=== PATIENT | male | born 1960 | race Caucasian/White ===

== ENCOUNTER 2017-07-14 12:41 | Emergency (ER) | payer OTHER, MEDICAID ==
[~2017-07-14] VITALS: Ht 177.8 cm; Wt 74.8 kg
[~2017-07-14 12:41] MED LIST: ASPIRIN325; AUGMENTIN 875875 MG PO; CHANTIX1 MG PO; HYDROCODONE-AP1 EAC6 PO; LEVAQUIN 500 M500 MG PO; LIPITOR 40 MG T40 M1; LOSARTAN POTASS50 MG; NEXIUM 40 MG CA40 M1; NORCO 5-325 TA1 EACH PO; PERCOCET 5-3251 EACH PO; PLAVIX 75 MG TA75 M1 PO; PROAIR HFA8.5 GM; PROAIR HFA8.5 GM INH; SPIRIVA; TOPROL XL25 MG PO; TRAMADOL-ACETA1 EACH
[2017-07-14] MEDS ORDERED: ASPIR 8181 MG PO (13:06)
[2017-07-14 13:49] LABS: INFLUENZA A ANTIGEN None Detected (None Detect); INFLUENZA B ANTIGEN None Detected (None Detect)
[2017-07-14] MEDS ORDERED: ZPAK PO (14:03)
[2017-07-14 14:10] VITALS: BP 129/77
== END 2017-07-14 14:11 | disposition home or self-care (01) ==
LOC: M.ERS 12:41
PROVIDERS: Nurse Practitioner Family
DX: J06.9 Acute upper respiratory infection, unspecified (principal); I25.2 Old myocardial infarction; E78.00 Pure hypercholesterolemia, unspecified; J44.9 Chronic obstructive pulmonary disease, unspecified; Z95.0 Presence of cardiac pacemaker; Z95.5 Presence of coronary angioplasty implant and graft; Z98.890 Other specified postprocedural states; Z88.8 Allergy status to other drugs, medicaments and biological substances

== ENCOUNTER 2017-07-18 12:33 | Emergency (ER) | payer OTHER, MEDICAID ==
[~2017-07-18] VITALS: Ht 177.8 cm; Wt 74.8 kg
[~2017-07-18 12:33] MED LIST changes: +ASPIR 8181 MG PO; +ZPAK PO
[2017-07-18 13:59] VITALS: BP 127/71
== END 2017-07-18 14:00 | disposition home or self-care (01) ==
LOC: M.ERS 12:33
DX: R05 Cough (principal); I25.2 Old myocardial infarction; E78.00 Pure hypercholesterolemia, unspecified; J44.9 Chronic obstructive pulmonary disease, unspecified; Z95.5 Presence of coronary angioplasty implant and graft; Z95.0 Presence of cardiac pacemaker; Z98.890 Other specified postprocedural states; Z88.8 Allergy status to other drugs, medicaments and biological substances

== ENCOUNTER 2017-11-30 10:36 | Emergency (ER) | payer OTHER, MEDICAID ==
[~2017-11-30] VITALS: Ht 177.8 cm; Wt 83.9 kg
[2017-11-30 10:39] VITALS: BP 120/72
[2017-11-30] MEDS ORDERED: COZAAR 50 MG TA50 M2 PO (10:42)
[2017-11-30] MEDS ORDERED: POLYMYXIN B/TMP10 ML OPHTHALMIC (10:49)
== END 2017-11-30 10:58 | disposition home or self-care (01) ==
LOC: M.ERS 10:36
DX: H10.89 Other conjunctivitis (principal); E78.00 Pure hypercholesterolemia, unspecified; J44.9 Chronic obstructive pulmonary disease, unspecified; Z88.8 Allergy status to other drugs, medicaments and biological substances

== ENCOUNTER → 2018-01-06 | Outpatient (CLI) | payer OTHER, MEDICAID ==
[~2018-01-06] MED LIST changes: +COZAAR 50 MG TA50 M2 PO; +POLYMYXIN B/TMP10 ML OPHTHALMIC
--- NOTE | 2018-01-06 15:56 | 2DMMODE ---
[place] [address] 2 D/M-MODE ECHOCARDIOGRAM Name: LAURA BUENROSTRO Room: [facility]#: [id number] Admission: 01/06/18 Attend Phys: Annelise De Leon, Discharge: Date of : 62 Date of Service: 01/06/18 1556 Report #: [id number] THIS REPORT FOR: //name// APPROVED REPORT Study performed: 01/06/2018 13:14:40 EXAM: Comprehensive 2D, Doppler, and color-flow Echocardiogram Patient Location: Out-Patient Status: routine BSA: 2.00 HR: 62 bpm Other Information Study Quality: Fair Indications Congestive Heart Failure CAD Cardiomyopathy 2D Dimensions LVEF(%): 28.97 (>50%) IVSd: 12.71 (7-11mm) LVOT Diam: 20.87 (18-24mm) LVDd: 56.07 mm PWd: 10.64 (7-11mm) Ascending Ao: 29.92 (22-36mm) LVDs: 48.37 (25-40mm) Aortic Root: 33.21 mm Downing's LVEF: 28.97 % Volumes Left Atrial Volume (Systole) LA ESV Index: 19.80 mL/m2 Aortic Valve AoV Peak Cesar.: 0.86 m/s AO Peak Gr.: 2.97 mmHg LVOT Max P.47 mmHg AO Mean Gr.: 1.49 mmHg LVOT Mean P.01 mmHg LVOT Max V: 0.79 m/s AO V2 VTI: 15.28 cm LVOT Mean V: 0.45 m/s ML (VTI): 2.73 cm2 LVOT V1 VTI: 12.20 [place] [address] 2 D/M-MODE ECHOCARDIOGRAM Name: LAURA BUENROSTRO Room: [facility]#: [id number] Admission: 01/06/18 Attend Phys: Annelise De Leon, Discharge: Date of : 62 Date of Service: 01/06/18 1556 Report #: [id number] E/A Ratio: 0.67 MV Decel. Time: 221.70 ms MV E Max Cesar.: 0.44 m/s MV PHT: 64.29 ms MVA (PHT): 3.42 cm2 TDI E/Lateral E': 7.33 E/Medial E': 6.29 Medial E' Cesar.: 0.07 m/s Lateral E' Cesar.: 0.06 m/s Pulmonary Valve PV Peak Cesar.: 0.84 m/s PV Peak Gr.: 2.84 mmHg Tricuspid Valve TR Peak Gr.: 17.88 mmHg RVSP: 22.88 mmHg Left Ventricle Left ventricle is mildly dilated. akinesis noted of the apex There is normal left ventricular wall thickness. Left ventricular systolic function is severely decreased. LVEF is 20-25%. Grade I - abnormal relaxation pattern. Right Ventricle The right ventricle is normal size. The right ventricular systolic function is normal. Pacemaker lead is present in the right ventricle. Atria The left atrium size is normal. Pacemaker lead is present in the right atrium. The right atrium size is normal. Aortic Valve The aortic valve is normal in structure. No aortic regurgitation is present. There is no aortic valvular stenosis. Mitral Valve The mitral valve is normal in structure. Mild mitral regurgitation. No evidence of mitral valve stenosis. Tricuspid Valve The tricuspid valve is normal in structure. Mild tricuspid regurgitation. The RVSP is __22.9 mmHg. Pulmonic Valve The pulmonary valve is normal in structure. Mild [place] [address] 2 D/M-MODE ECHOCARDIOGRAM Name: LAURA BUENROSTRO Room: [facility]#: [id number] Admission: 01/06/18 Attend Phys: Annelise De Leon, Discharge: Date of : 62 Date of Service: 01/06/18 1556 Report #: [id number] Great Vessels The aortic root is normal in size. IVC is not well visualized. Pericardium There is no pericardial effusion. <Conclusion> Left ventricle is mildly dilated. LVEF is 20-25%. Mild mitral regurgitation. akinesis noted of the apex <ELECTRONICALLY SIGNED> By: John Espinoza MD, FACC 01/06/18 1556 1556 1556 John Espinoza MD, FACC /INF
== END ==
LOC: M.CRD 12:50
DX: I08.1 Rheumatic disorders of both mitral and tricuspid valves (principal); I25.10 Atherosclerotic heart disease of native coronary artery without angina pectoris; I50.22 Chronic systolic (congestive) heart failure; I25.5 Ischemic cardiomyopathy

== ENCOUNTER 2018-06-23 11:24 | Observation (INO) | payer OTHER, MEDICAID ==
[~2018-06-23] VITALS: Ht 177.8 cm; Wt 89.8 kg
--- NOTE | ~2018-06-23 | CON ---
[address] [address] CONSULTATION Name: LAURA BUENROSTRO Room: [address] Amaury Archer#: [id number] Admission: 06/23/18 Attend Phys: Dakota Stoll MD Discharge: 06/23/18 Date of : 62 Report #: [id number] THIS REPORT FOR: //name// CC: Dakota Kidd DATE OF SERVICE: 06/23/2018 REASON FOR CONSULTATION: Dizziness, diaphoresis. HISTORY OF PRESENT ILLNESS: The patient is a 58-year-old male with an ischemic cardiomyopathy, previously followed by Dr. De Leon in our practice. He went to the Emergency Room with an episode of lightheadedness and diaphoresis. This has been ongoing for the last couple of weeks or so. He does have a defibrillator. He denies any defibrillator shocks. His device has been interrogated and it has not delivered any therapy since initial implant apparently. He does have a history of prior partial lobectomy, but has not really been short of breath. He actually feels better when he exercises. He usually walks 3-4 miles on the treadmill most days of the week and has no symptoms of dizziness, chest pressure, tightness, or diaphoresis with this. He does not have a history of diabetes. We recently had increased his Toprol dose thinking this could be related to an arrhythmia, but his symptoms really have not improved. PAST MEDICAL HISTORY: Significant for ischemic cardiomyopathy status post prior coronary artery bypass graft. He reports it has been some time since his last MPI. Non-small cell cancer of the left lung status post partial lobectomy. This apparently was a successful localized resection. He has a [employer] [place] ICD implanted by Dr. Chu in our practice, implanted in 2014 with normal function. Reviewing our outpatient defibrillator interrogations, it showed that he has had one 8 second long beat of nonsustained ventricular tachycardia in February; other than that, nothing else. HOME MEDICATIONS: Include albuterol, aspirin, atorvastatin 40 mg daily, Chantix, Plavix 75 mg daily, Cozaar 25 mg daily, metoprolol XL 25 mg p.o. b.i.d., Spiriva. SOCIAL HISTORY: He is not actively smoking. PAST SURGICAL HISTORY: As above, prior most recent surgery was his lobectomy. REVIEW OF SYSTEMS: NEUROLOGIC: Denies any history of seizures. Denies slurred speech, [place] [address] CONSULTATION Name: LAURA BUENROSTRO Room: [address]#: [id number] Admission: 06/23/18 Attend Phys: Dakota Stoll MD Discharge: 06/23/18 Date of : 62 Report #: [id number] changes or difficulty swallowing. CARDIOVASCULAR: No chest discomfort, no orthopnea, no PND, no dyspnea with exertion. GENERAL: No weight gain. No fevers or chills. SKIN: No rashes. PHYSICAL EXAMINATION: VITAL SIGNS: Blood pressure is 130/53, pulse is 55 in a sinus rhythm, respiratory rate 12, O2 sats 97%. GENERAL: This is a pleasant adult male who is alert, oriented, no apparent distress. NECK: Supple. No jugular venous distention. CARDIOVASCULAR: Regular. I cannot hear a murmur or S3. LUNGS: Clear to auscultation bilaterally. Breath sounds are reduced in the left base. NEUROLOGIC: There are no focal deficits. SKIN: There are no rashes. MUSCULOSKELETAL: There is no pretibial edema on his lower extremity examination. LABORATORY DATA: Hemoglobin is 14.4, white blood cell count 4.1, platelet count is 132,000. Sodium is 140, potassium 3.7, chloride is 106, CO2 is 25, BUN is 11, creatinine is 1.3. INR is 1.0. Carotid Doppler study reveals no hemodynamically significant carotid stenosis in accordance with NASCET criteria. Normal vertebrobasilar flow. CTA of the chest shows no evidence of pulmonary emboli, bullous emphysema changes in the upper lungs bilaterally with strand-like scarring in the lower lungs. Chest x-ray shows no evidence of congestive heart failure. IMPRESSION: 1. Dizziness and diaphoresis. This does not seem anginal. He has already had 2 cardiac troponin levels, which are normal and he is very active physically and never develops any exertional chest discomfort. While he will be evaluated with a pharmacologic stress test, I would like to adjust his blood pressure medications to possibly treat him for potential vasomotor instability. I am holding his ARB. 2. Ischemic cardiomyopathy, chronic systolic dysfunction. He does not have evidence of congestive heart failure on examination and if his symptoms do not improve with holding his ARB, I am going to restart it because he does have congestive heart failure. 3. Chronic obstructive pulmonary disease. It is also possible he may be getting transiently hypoxic as he has had a partial pneumonectomy that could be leading to some of his symptoms. 4. Status post implantable cardioverter-defibrillator. His last interrogation was unremarkable. [address] [address] CONSULTATION Name: LAURA BUENROSTRO Room: [address] Amaury Archer#: [id number] Admission: 06/23/18 Attend Phys: Dakota Stoll MD Discharge: 06/23/18 Date of : 62 Report #: [id number] 5. History of nonsustained ventricular tachycardia. This was brief and several months ago. We will continue with beta doyle therapy. Thank you for allowing me to participate in his care. By: 1543 1824Aldo Mai MD, FACC /nt
[~2018-06-23 11:24] MED LIST changes: +COZAAR 50 MG TA50 M1 PO; -COZAAR 50 MG TA50 M2 PO; -LIPITOR 40 MG T40 M1; +LIPITOR 40 MG T40 M1 PO; -SPIRIVA; +SPIRIVA INH
[2018-06-23 11:35] VITALS: BP 148/56
[2018-06-23 12:00] LABS: ABSOLUTE EOSINOPHILS 0.1 thou/uL (0.0-0.7); ABSOLUTE LYMPHOCYTES 1.2 thou/uL (0.8-5.3); ABSOLUTE MONOCYTES 0.3 thou/uL (0.0-1.2); ABSOLUTE NEUTROPHILS 2.4 thou/uL (1.6-8.1); BASOPHILS 1.1 %; EOSINOPHILS 1.7 %; HEMATOCRIT 42.6 % (42.0-52.0); HEMOGLOBIN 14.4 gm/dL (14.0-18.0); LYMPHOCYTES 29.4 %; MCH 31.6 pg (26.0-34.0); MCHC 33.8 g/dL (28.0-37.0); MCV 93.5 fL (80.0-100.0); MONOCYTES 8.3 %; MPV 9.4 fl. (7.2-11.1); NUCLEATED RBCS 0 /100WBC; PLATELET COUNT* 132 thou/uL (150-400); POLYS 59.5 %; RBC 4.55 mil/uL (4.50-6.00); RDW-CV 13.9 % (10.5-14.5); WBC 4.1 thou/uL (4.0-11.0)
[2018-06-23 12:11] LABS: ANION GAP 9 mmol/L (7-16); BUN 11 mg/dL (7-18); CHLORIDE 106 mmol/L (98-107); CO2 25 mmol/L (21-32); CREATININE 1.3 mg/dL (0.6-1.3); GLUCOSE 113 mg/dL (70-99); POTASSIUM 3.7 mmol/L (3.5-5.1); SODIUM 140 mmol/L (136-145)
[2018-06-23 12:14] LABS: APTT 23.3 Seconds (25.0-31.3); PROTIME 10.2 Seconds (9.20-11.50)
[2018-06-23 12:18] LABS: ALBUMIN 3.4 g/dL (3.4-5.0); ALKALINE PHOSPHATASE 87 U/L (46-116); SGOT 21 U/L (15-37); SGPT 44 U/L (30-65); TOTAL BILIRUBIN 0.5 mg/dL (<0.1-1.0); TROPONIN-I LEVEL <0.06 ng/mL (<0.06)
[2018-06-23 15:30] VITALS: BP 130/53; BP 137/106
--- NOTE | 2018-06-23 16:23 | EKG ---
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: Andrea TOTH : 1960 Requested By: Gustavo Rosado Order Number: [id number] MD: Aldo Mai Measurements Intervals [place] Rate: 56 P: 22 NH: 170 QRS: 65 QRSD: 123 T: 171 QT: 422 QTc: 408 Interpretive Statements Sinus rhythm LVH with secondary repolarization abnormality No previous ECG available for comparison Electronically Signed On 06-23-2018 16:23:17 ONCOLOGY CONSULTANT by Aldo Mai [email or web address] <ELECTRONICALLY SIGNED> By: Aldo Mai MD, [facility] 06/23/18 1623 1138 113 Aldo Mai MD, [facility] /EPI
--- NOTE | 2018-06-23 16:24 | EKG ---
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 : 1960 Requested By: Gustavo Rosado Order Number: [id number] MD: Aldo Mai Measurements Intervals [place] Rate: 50 P: 24 DC: 198 QRS: 49 QRSD: 119 T: 159 QT: 457 QTc: 417 Interpretive Statements Sinus rhythm Probable left atrial enlargement Nonspecific intraventricular conduction delay Abnormal T, consider ischemia, lateral leads No previous ECG available for comparison Electronically Signed On 06-23-2018 16:23:59 SCREEN PRINTING MACHINE LOADER UNLOADER by Aldo Mai [email or web address] <ELECTRONICALLY SIGNED> By: Aldo Mai MD, FACC 06/23/18 1623 1344 1344 Aldo Mai MD, [facility] /EPI
[2018-06-23 16:35] VITALS: BP 119/76
[2018-06-23 16:36] VITALS: BP 128/77
[2018-06-23 16:37] VITALS: BP 115/78
[2018-06-23 16:43] VITALS: BP 137/106
--- NOTE | 2018-06-23 17:55 | NUR ---
PATIENT DISCHARGED TO HOME. DISCHARGE PAPERS REVIEWED AND SIGNED. NO PRESCRIPTIONS. IV REMOVED. PATIENT DENIES ANY NEEDS. PATIENT TAKEN AMBULATORY TO EXIT. LEFT WITH COUSIN.
== END 2018-06-23 17:55 | disposition home or self-care (01) ==
LOC: M.ERS 11:24 → M.3W 14:21 → M.TBA-ER 14:21 → M.3W 15:40
PROVIDERS: Emergency Medicine Emergency Medical Services; ADMIT Internal Medicine
DX: R55 Syncope and collapse (principal); I25.10 Atherosclerotic heart disease of native coronary artery without angina pectoris; I50.42 Chronic combined systolic (congestive) and diastolic (congestive) heart failure; J44.9 Chronic obstructive pulmonary disease, unspecified; I25.5 Ischemic cardiomyopathy; Z85.118 Personal history of other malignant neoplasm of bronchus and lung; Z95.1 Presence of aortocoronary bypass graft; E78.00 Pure hypercholesterolemia, unspecified; Z79.899 Other long term (current) drug therapy; Z87.891 Personal history of nicotine dependence

== ENCOUNTER → 2018-07-18 | Outpatient (CLI) | payer OTHER, MEDICAID ==
--- NOTE | 2018-07-18 16:18 | CARDNUC ---
[place] [address] CARDIAC NUCLEAR IMAGING REPORT Name: LAURA BUENROSTRO Room: [facility]#: [id number] Admission: 07/18/18 Attend Phys: Adlo Mai, Discharge: Date of : 62 Date of Service: 07/18/18 1618 Report #: [id number] THIS REPORT FOR: //name// APPROVED REPORT Imaging Protocol: Rest Tc-99m/Stress Tc-99m 1 day Study performed: 07/18/2018 07:30:00 Indication: SOA, diaphoresis Patient Location: Out-Patient Stress Tech: Fernanda Mendoza Stress Nurse: Kayce Francis RN NM Tech:TANNA Bustamante Ht: 6 ft 2 in Wt: 237 lbs BSA: 2.34 m2 BMI: 30.42 Medical History Medical History: CAD, HLP, LUNG CA, COPD, ICM Medications: metoprolol, ASA, clopidigrel, atorvastatin Allergies: lisinopril Cardiac Risk Factors: Age, HLP, FCAD Previous Cardiac Procedures: CABG, PCI Meds Held (24 hrs): metoprolol Resting Data Rest SPECT myocardial perfusion imaging was performed in supine position 30 minutes following the intravenous injection of 11.3 mCi of Tc-99m Sestamibi. Time of rest injection: 744 Date: 07/18/2018 Time of rest imagin The images were gated to evaluate regional wall motion and calculate left ventricular ejection fraction. Administration Route: IV Administration Site: Right Hand Pharmacologic Stress Pharmacologic stress test was performed by injecting Regadenoson 0.4 mg IV push over 10-15 seconds immediately followed by the intravenous injection of 35.4 mCi of Tc-99m Sestamibi. Time of stress injection: 914 Time of stress imagin Administration Route: IV Administration Site: Right Hand Gated Stress SPECT was performed 40 [place] [address] CARDIAC NUCLEAR IMAGING REPORT Name: LAURA BUENROSTRO Room: [facility]#: [id number] Admission: 07/18/18 Attend Phys: Aldo Mai, Discharge: Date of : 62 Date of Service: 07/18/18 1618 Report #: [id number] injection. The images were gated to evaluate regional wall motion and calculate left ventricular ejection fraction. Prone imaging was performed. Stress Test Details Stress Test: Pharmacologic stress was paired with low level exercise. HR Max Heart Rate (APMHR): 163 bpm Resting HR: 59 bpm Target HR (85% APMHR): 138 bpm Max HR Achieved: 115 bpm % of APMHR: 70 Recovery HR: 92 bpm BP Resting BP: 131/83 mmHg Max BP: 145/100 mmHg Recovery BP: 136/83 mmHg ECG Resting ECG: Sinus Rhythm, nonspecific ST-T abnormalities Stress ECG: Sinus Rhythm, nonspecific ST-T abnormalities ST Change: None Arrhythmia: None Recovery ECG: Sinus Rhythm with early repolarization changes Recovery ST Change: None Recovery Arrhythmia: None Clinical Reason for Termination: Completed protocol Stress Symptoms: SOA/chest tightness post lexiscan that resolved in recovery period Exercise duration: 4 min 0 sec The patient tolerated Lexiscan infusion without significant symptoms. Stress ECG Conclusion The baseline 12-lead EKG shows sinus rhythm with nonspecific intraventricular conduction delay and nonspecific ST and T wave abnormalities. EKGs obtained during and post Lexiscan infusion show sinus rhythm and sinus tachycardia without significant ST or T wave changes when compared to baseline. There were no significant stress[place] [address] CARDIAC NUCLEAR IMAGING REPORT Name: LAURA BUENROSTRO Room: [facility]#: [id number] Admission: 07/18/18 Attend Phys: Aldo Mai, Discharge: Date of : 62 Date of Service: 07/18/18 1618 Report #: [id number] Study Quality Study: Good Artifact: No artifact Study Data At rest, the left ventricular ejection fraction was 20%.. Post stress, the left ventricular ejection was 30%.. TID = 1.09. Perfusion Myocardial perfusion images show a large in size severe intensity fixed defect involving the basal to apical inferior wall. There is also a moderate size moderate intensity fixed defect of the mid to distal anterior wall. No reversible defects were identified. Wall Motion On gated studies the left ventricle shows severe low blood hypokinesis. There is akinesis of the distal anterior wall and the inferior wall. Nuclear Conclusion ECG Findings: non-diagnostic Clinical Findings: negative for ischemia Nuclear Findings: negative for ischemia Exercise Capacity: not assessed Left Ventricular Function: abnormal Myocardial perfusion images show fixed defects involving the entire inferior wall and mid to distal anterior wall consistent with areas of prior infarct. There is severe left ventricular systolic dysfunction. Findings consistent with an ischemic cardiomyopathy. This is a high risk stress test based on severe left ventricular systolic dysfunction. There is no evidence of ongoing ischemic burden. <Conclusion> The baseline 12-lead EKG shows sinus rhythm with nonspecific intraventricular conduction delay and nonspecific ST and T wave abnormalities. EKGs obtained during and post Lexiscan infusion show sinus rhythm and sinus tachycardia without significant ST or T wave changes when compared to baseline. There were no significant stress-induced arrhythmias. <ELECTRONICALLY SIGNED> By: Levon Rayo MD, FACC 07/18/18 1618 1618 1618 Levon Rayo MD, FACC /INF
== END ==
LOC: M.NUC 06-23 17:30
DX: I25.118 Atherosclerotic heart disease of native coronary artery with other forms of angina pectoris (principal); I25.5 Ischemic cardiomyopathy; E78.5 Hyperlipidemia, unspecified; J44.9 Chronic obstructive pulmonary disease, unspecified

== ENCOUNTER 2019-07-04 11:15 | Emergency (ER) | payer OTHER, MEDICAID ==
[~2019-07-04] VITALS: Ht 177.8 cm; Wt 90.7 kg
[2019-07-04 12:36] LABS: INFLUENZA A ANTIGEN Negative (Negative)
[2019-07-04] MEDS ORDERED: TAMIFLU75 MG PO (13:13)
[2019-07-04] MEDS ORDERED: PREDNISONE 20 M20 M1 PO (13:13)
[2019-07-04] MEDS ORDERED: ZPAK PO (13:13)
[2019-07-04 13:38] VITALS: BP 102/70
== END 2019-07-04 13:39 | disposition home or self-care (01) ==
LOC: M.ERS 11:15
PROVIDERS: Family Medicine
DX: J10.1 Influenza due to other identified influenza virus with other respiratory manifestations (principal); J40 Bronchitis, not specified as acute or chronic; E78.00 Pure hypercholesterolemia, unspecified; J44.9 Chronic obstructive pulmonary disease, unspecified; Z85.118 Personal history of other malignant neoplasm of bronchus and lung

== ENCOUNTER 2019-08-24 16:20 | Emergency (ER) | payer OTHER, MEDICAID ==
[~2019-08-24] VITALS: Ht 177.8 cm; Wt 88.9 kg
[~2019-08-24 16:20] MED LIST changes: +PREDNISONE 20 M20 M1 PO; +TAMIFLU75 MG PO
[2019-08-24] MEDS ORDERED: DESYREL150 MG PO (16:33)
[2019-08-24 17:00] LABS: ABSOLUTE EOSINOPHILS 0.1 thou/uL (0.0-0.7); ABSOLUTE LYMPHOCYTES 0.8 thou/uL (0.8-5.3); ABSOLUTE MONOCYTES 0.5 thou/uL (0.0-1.2); ABSOLUTE NEUTROPHILS 2.3 thou/uL (1.6-8.1); BASOPHILS 1.1 %; EOSINOPHILS 2.6 %; HEMOGLOBIN 15.5 gm/dL (14.0-18.0); LYMPHOCYTES 21.5 %; MCH 32.5 pg (26.0-34.0); MCHC 34.5 g/dL (28.0-37.0); MCV 94.1 fL (80.0-100.0); MONOCYTES 12.5 %; MPV 9.6 fl. (7.2-11.1); NUCLEATED RBCS 0 /100WBC; PLATELET COUNT* 115 thou/uL (150-400); POLYS 62.3 %; RBC 4.78 mil/uL (4.50-6.00); RDW-CV 14.5 % (10.5-14.5); WBC 3.6 thou/uL (4.0-11.0)
[2019-08-24 17:07] LABS: CALCIUM 8.7 mg/dL (8.5-10.1); CREATININE 1.3 mg/dL (0.6-1.3); POTASSIUM 4.1 mmol/L (3.5-5.1)
[2019-08-24 17:08] LABS: APTT 25.4 Seconds (25.0-31.3); PROTIME 10.2 Seconds (9.20-11.50)
[2019-08-24 17:18] LABS: TOTAL BILIRUBIN 0.5 mg/dL (<0.1-1.0); TOTAL PROTEIN 7.6 g/dL (6.4-8.2)
[2019-08-24 17:56] LABS: INFLUENZA A ANTIGEN Negative (Negative); INFLUENZA B ANTIGEN Negative (Negative)
[2019-08-24] MEDS ORDERED: PREDNISONE 20 M20 MG PO (18:38)
[2019-08-24] MEDS ORDERED: LEVAQUIN 500 M500 M2 PO (18:38)
[2019-08-24 18:48] VITALS: BP 122/67
--- NOTE | 2019-08-25 11:35 | EKG ---
[place] [address] ELECTROCARDIOGRAM REPORT Name: PORTERLAURA R Room: 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: [facility] : 1960 Requested By: Roya East Order Number: [id number] MD: Austen Price Measurements Intervals [place] Rate: 81 P: 53 MS: 164 QRS: 67 QRSD: 128 T: 222 QT: 364 QTc: 423 Interpretive Statements Sinus rhythm Probable left atrial enlargement Nonspecific intraventricular conduction delay, incomplete LBBB Compared to ECG 06/23/2018 13:44:17 No significant changes Electronically Signed On 08-25-2019 11:34:41 PASTER SUPERVISOR by Austen Price [email or web address] <ELECTRONICALLY SIGNED> By: Austen Price MD, [facility] 08/25/19 1134 1709 1709 Austen Price MD, [facility] /EPI
== END 2019-08-24 18:49 | disposition home or self-care (01) ==
LOC: M.ERS 16:20
PROVIDERS: Physician Assistant
DX: J20.9 Acute bronchitis, unspecified (principal); J44.9 Chronic obstructive pulmonary disease, unspecified; E78.00 Pure hypercholesterolemia, unspecified; Z85.118 Personal history of other malignant neoplasm of bronchus and lung; Z88.8 Allergy status to other drugs, medicaments and biological substances

== ENCOUNTER 2019-09-10 15:42 | Inpatient (IN) | payer OTHER, MEDICAID ==
[~2019-09-10] VITALS: Ht 177.8 cm; Wt 93.4 kg
[~2019-09-10 15:42] MED LIST changes: +DESYREL150 MG PO; +LEVAQUIN 500 M500 M2 PO; +PREDNISONE 20 M20 MG PO
[2019-09-10 15:52] VITALS: BP 136/77
[2019-09-10] MEDS ORDERED: CHANTIX1 MG PO (15:58)
[2019-09-10 16:20] LABS: ABSOLUTE BASOPHILS 0.1 thou/uL (0.0-0.2); ABSOLUTE EOSINOPHILS 0.1 thou/uL (0.0-0.7); ABSOLUTE LYMPHOCYTES 1.3 thou/uL (0.8-5.3); ABSOLUTE MONOCYTES 0.4 thou/uL (0.0-1.2); ABSOLUTE NEUTROPHILS 3.6 thou/uL (1.6-8.1); BASOPHILS 1.7 %; EOSINOPHILS 2.2 %; HEMATOCRIT 42.1 % (42.0-52.0); HEMOGLOBIN 14.5 gm/dL (14.0-18.0); LYMPHOCYTES 23.2 %; MCH 32.3 pg (26.0-34.0); MCHC 34.5 g/dL (28.0-37.0); MCV 93.6 fL (80.0-100.0); MONOCYTES 7.7 %; MPV 9.5 fl. (7.2-11.1); NUCLEATED RBCS 0 /100WBC; PLATELET COUNT* 137 thou/uL (150-400); POLYS 65.2 %; RDW-CV 14.4 % (10.5-14.5); WBC 5.5 thou/uL (4.0-11.0)
[2019-09-10 16:42] LABS: CALCIUM 8.7 mg/dL (8.5-10.1); CREATININE 1.3 mg/dL (0.6-1.3); POTASSIUM 4.3 mmol/L (3.5-5.1)
[2019-09-10 16:44] LABS: APTT 24.4 Seconds (25.0-31.3); PROTIME 10.1 Seconds (9.20-11.50)
[2019-09-10 16:47] LABS: ALBUMIN 3.4 g/dL (3.4-5.0); TOTAL BILIRUBIN 0.4 mg/dL (<0.1-1.0); TOTAL PROTEIN 7.1 g/dL (6.4-8.2)
[2019-09-10 19:30] VITALS: BP 138/73
[2019-09-10 19:50] VITALS: BP 144/81
[2019-09-10] MEDS ORDERED: LIPITOR 20 MG T20 M1 PO (22:18)
[2019-09-11 03:56] VITALS: BP 137/78
--- NOTE | 2019-09-11 06:52 | NUR ---
Admission to the floor at 1949. He is alert and oriented x 4. He is up independently. Lungs sound diminished, he does have a history lung lobectomy from cancer. He hasn't been coughing. Roomair sat was 95%, he is getting breathing treatments. He has a defibilator to his L chest. He denies pain. He has been awake all of this shift. Vitals are stable.
[2019-09-11 07:55] VITALS: BP 127/61
--- NOTE | 2019-09-11 10:08 | EKG ---
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: [facility] : 1960 Requested By: Rah Daniel Order Number: [id number] MD: John Espinoza Measurements Intervals [place] Rate: 74 P: 48 HI: 177 QRS: 64 QRSD: 122 T: 205 QT: 390 QTc: 433 Interpretive Statements Sinus rhythm Probable left atrial enlargement Nonspecific intraventricular conduction delay Abnormal T, consider ischemia, diffuse leads Compared to ECG 08/24/2019 17:09:02 no change Electronically Signed On 09-11-2019 10:07:29 CHEMICAL ENGINEER by John Espinoza [email or web address] <ELECTRONICALLY SIGNED> By: John Espinoza MD, FACC 09/11/19 1007 1626 1626 John Espinoza MD, [facility] /EPI
--- NOTE | 2019-09-11 17:04 | NUR ---
PATIENT RESTING UP IN CHAIR. PATIENT IS UP AD KELTON IN ROOM. PATIENT IS ON ROOM AIR, DENIES ANY TROUBLE BREATHING. PATIENT DENIES ANY PAIN. PATIENT HAD CT THIS AFTERNOON WITHOUT INCIDENT. PATIENT HAS GOOD APPETITE. PATIENT DENIES ANY NEEDS AT THIS TIME. CALL LIGHT WITHIN REACH.
[2019-09-11 17:59] VITALS: BP 131/85
[2019-09-11 19:50] VITALS: BP 142/77
[2019-09-12 02:07] LABS: GLYCOHEMOGLOBIN (HGB A1C) 5.8 % (4.8-5.6)
[2019-09-12 03:51] LABS: HEMATOCRIT 38.6 % (42.0-52.0); MCH 32.1 pg (26.0-34.0); MCHC 33.8 g/dL (28.0-37.0); MCV 94.8 fL (80.0-100.0); RBC 4.07 mil/uL (4.50-6.00); RDW-CV 14.4 % (10.5-14.5); WBC 7.4 thou/uL (4.0-11.0)
[2019-09-12 04:24] LABS: ALBUMIN 3.2 g/dL (3.4-5.0); CALCIUM 9.1 mg/dL (8.5-10.1); CREATININE 1.3 mg/dL (0.6-1.3); MAGNESIUM 1.9 mg/dL (1.8-2.4); TOTAL BILIRUBIN 0.3 mg/dL (<0.1-1.0); TOTAL PROTEIN 6.5 g/dL (6.4-8.2)
--- NOTE | 2019-09-12 06:26 | NUR ---
PT ON RA, SAT STABLE. DENIED PAIN. MEDS GIVEN ORDERED. PT TOLERATED BREATHING TREATMENT. NO OTHER CONCERNS AT THIS TIME. WILL CONTINUE TO MONITOR.
[2019-09-12 08:45] VITALS: BP 131/63
--- NOTE | 2019-09-12 14:55 | NUR ---
ASSUMED CARE OF PATIENT AT 1455. RECEIVED REPORT FROM YURIY Landon RN. ALERT AND ORIENTED X 4. VITAL SIGNS STABLE ON ROOM AIR. AGREE WITH PREVIOUS ASSESSMENTS AND CHARTING. NURSING WILL CONTINUE TO MONITOR.
[2019-09-12 16:00] VITALS: BP 157/85
--- NOTE | 2019-09-12 17:34 | NUR ---
I ASSUMED CARE OF THE PATIENT AT 0700. HE IS ALERT AND ORIENTED X4 AND IS UP AD KELTON. BED IS IN THE LOW LOCKED POSITION AND CALL LIGHT IS IN REACH. HOURLY ROUNDING IS COMPLETED AND PATIENT NEEDS ARE MET. PAIN IS MANAGED WITH PRN MEDS. FAMILY IS AT THE BEDSIDE. PATIENT WAS ABLE TO BATHE HIMSELF. WILL CONTINUE TO MONITOR. SHOULD D/C TOMORROW.
--- NOTE | 2019-09-12 18:25 | NUR ---
PATIENT ALERT AND ORIENTED X 4. VITAL SIGNS STABLE ON ROOM AIR. AFEBRILE. PERRLA. UP INDEPENDENTLY IN ROOM. IV PATENT AND SALINE LOCKED. DENIES PAIN AND NAUSEA AT THIS TIME. HOURLY ROUNDS MAINTAINED THROUGHOUT THE SHIFT. CALL LIGHT WITHIN REACH. NURSING WILL CONTINUE TO MONITOR.
[2019-09-12 21:10] VITALS: BP 128/75
--- NOTE | 2019-09-13 05:25 | NUR ---
O2 SAT STABLE ON RA. MEDS GIVEN ORDERED. NO C/O PAIN. PT SLEEPING ALL THROUGH THE NIGHT. HOURLY ROUNDING COMPLETED. WILL CONTINUE TO MONITOR.
[2019-09-13 08:00] VITALS: BP 111/62
[2019-09-13] MEDS ORDERED: PREDNISONE 10 M10 MG PO (08:18)
[2019-09-13] MEDS ORDERED: IPRAT-ALBUT 0.5-3 ML INH (08:18)
[2019-09-13] MEDS ORDERED: PULMICORT0.5 MG/2 M INH (08:18)
[2019-09-13] MEDS ORDERED: NEBULIZER MISCELL (08:18)
[2019-09-13] MEDS ORDERED: LEVAQUIN 500 M500 M3 PO (08:18)
[2019-09-13 09:25] VITALS: BP 111/62
--- NOTE | 2019-09-13 10:17 | NUR ---
PATIENT DISCHARGED FROM UNIT AT 1005. ALERT AND ORIENTED X 4. VITAL SIGN STABLE ON ROOM AIR. UP INDEPENDENTLY IN ROOM. IV DISCONTINUED. DISCHARGE INSTRUCTIONS AND MEDICATION INFORMTAION GIVEN TO PATIENT. LEFT WITH ALL BELONGINGS. PATIENT LEFT WITH COUSIN VIA CAR.
[2019-09-13 10:19] VITALS: BP 111/62
== END 2019-09-13 10:05 | disposition home or self-care (01) | DRG 177 ==
LOC: M.ERS 15:42 → M.ORTHSURG 18:04 → M.TBA-ER 18:04 → M.ORTHSURG 19:49
PROVIDERS: Emergency Medicine; Internal Medicine; ADMIT Internal Medicine
DX: J15.6 Pneumonia due to other Gram-negative bacteria (principal); J96.01 Acute respiratory failure with hypoxia; J44.1 Chronic obstructive pulmonary disease with (acute) exacerbation; R04.2 Hemoptysis; I50.42 Chronic combined systolic (congestive) and diastolic (congestive) heart failure; J44.0 Chronic obstructive pulmonary disease with (acute) lower respiratory infection; I25.10 Atherosclerotic heart disease of native coronary artery without angina pectoris; E78.5 Hyperlipidemia, unspecified; I25.5 Ischemic cardiomyopathy; E78.00 Pure hypercholesterolemia, unspecified; I73.9 Peripheral vascular disease, unspecified; Z95.5 Presence of coronary angioplasty implant and graft; Z95.0 Presence of cardiac pacemaker; Z85.118 Personal history of other malignant neoplasm of bronchus and lung; Z79.82 Long term (current) use of aspirin; Z79.899 Other long term (current) drug therapy; Z87.891 Personal history of nicotine dependence; Z88.8 Allergy status to other drugs, medicaments and biological substances; Z95.1 Presence of aortocoronary bypass graft; Z90.2 Acquired absence of lung [part of]; Z23 Encounter for immunization; J40 Bronchitis, not specified as acute or chronic

== ENCOUNTER → 2019-12-16 | Outpatient (CLI) | payer OTHER, MEDICAID ==
[~2019-12-16] MED LIST changes: +IPRAT-ALBUT 0.5-3 ML INH; +LEVAQUIN 500 M500 M3 PO; +LIPITOR 20 MG T20 M1 PO; +NEBULIZER MISCELL; +PREDNISONE 10 M10 MG PO; +PULMICORT0.5 MG/2 M INH
[2019-12-16 13:20] LABS: ABSOLUTE LYMPHOCYTES 1.5 thou/uL (0.8-5.3)
[2019-12-16 13:23] LABS: ABSOLUTE BASOPHILS 0.1 thou/uL (0.0-0.2); ABSOLUTE EOSINOPHILS 0.1 thou/uL (0.0-0.7); ABSOLUTE MONOCYTES 0.6 thou/uL (0.0-1.2); ABSOLUTE NEUTROPHILS 3.5 thou/uL (1.6-8.1); HEMATOCRIT 46.5 % (42.0-52.0); LYMPHOCYTES 26.6 %; MCH 32.5 pg (26.0-34.0); MCHC 34.4 g/dL (28.0-37.0); MCV 94.5 fL (80.0-100.0); MONOCYTES 9.7 %; MPV 9.4 fl. (7.2-11.1); NUCLEATED RBCS 0 /100WBC; PLATELET COUNT* 139 thou/uL (150-400); POLYS 60.7 %; RBC 4.92 mil/uL (4.50-6.00); RDW-CV 13.9 % (10.5-14.5); WBC 5.8 thou/uL (4.0-11.0)
[2019-12-16 13:33] LABS: ANION GAP 8 mmol/L (7-16); BUN 12 mg/dL (7-18); CALCIUM 9.1 mg/dL (8.5-10.1); CHLORIDE 107 mmol/L (98-107); CHOLESTEROL 166 mg/dL (<200); CO2 25 mmol/L (21-32); CREATININE 1.4 mg/dL (0.6-1.3); GLUCOSE 78 mg/dL (70-99); HDL CHOLESTEROL 36 mg/dL (>40); LDL CHOLESTEROL 106 mg/dL (<100); POTASSIUM 4.7 mmol/L (3.5-5.1); SODIUM 140 mmol/L (136-145); TC:HDL 4.6 Ratio (Not establshd); TRIGLYCERIDE 123 mg/dL (<150); VLDL 25 mg/dL (<40)
[2019-12-16 13:37] LABS: SERUM ASSESSMENT Clear
== END ==
LOC: M.LAB 13:06
PROVIDERS: ATTEND Internal Medicine Cardiovascular Disease
DX: I25.5 Ischemic cardiomyopathy (principal); Z72.0 Tobacco use

== ENCOUNTER → 2021-01-02 | Outpatient (CLI) | payer OTHER, MEDICAID ==
--- NOTE | 2021-01-02 10:39 | 2DMMODE ---
[place] [address] 2 D/M-MODE ECHOCARDIOGRAM Name: LAURA BUENROSTRO Room: [facility]#: [id number] Admission: 01/02/21 Attend Phys: Aldo Mai, Discharge: Date of : 62 Date of Service: 01/02/21 1039 Report #: [id number] THIS REPORT FOR: cc: Светлана Kidd Maggie M. DO Blick, David R. MD [facility] ~ APPROVED REPORT Study performed: 01/02/2021 09:27:09 EXAM: Comprehensive 2D, Doppler, and color-flow Echocardiogram Patient Location: Out-Patient BSA: 2.10 HR: 64 bpm BP: 140/82 mmHg Other Information Study Quality: Good Indications CAD Ischemic Cardiomyopathy 2D Dimensions IVSd: 11.82 (7-11mm) LVOT Diam: 20.70 (18-24mm) LVDd: 56.21 mm PWd: 9.72 (7-11mm) Ascending Ao: 31.16 (22-36mm) LVDs: 48.00 (25-40mm) Aortic Root: 33.44 mm Volumes Left Atrial Volume (Systole) LA ESV Index: 14.10 mL/m2 Aortic Valve AoV Peak Cesar.: 1.14 m/s AO Peak Gr.: 5.22 mmHg LVOT Max P.21 mmHg AO Mean Gr.: 2.93 mmHg LVOT Mean P.83 mmHg LVOT Max V: 0.74 m/s AO V2 VTI: 24.94 cm LVOT Mean V: 0.41 m/s ML (VTI): 1.92 cm2 LVOT V1 VTI: 14.25 [place] [address] 2 D/M-MODE ECHOCARDIOGRAM Name: LAURA BUENROSTRO Room: [facility]#: [id number] Admission: 01/02/21 Attend Phys: Aldo Mai, Discharge: Date of : 62 Date of Service: 01/02/21 1039 Report #: [id number] E/A Ratio: 0.95 MV Decel. Time: 223.77 ms MV E Max Cesar.: 0.63 m/s MV PHT: 64.89 ms MVA (PHT): 3.39 cm2 TDI E/Lateral E': 6.30 E/Medial E': 9.00 Medial E' Cesar.: 0.07 m/s Lateral E' Cesar.: 0.10 m/s Pulmonary Valve PV Peak Cesar.: 0.77 m/s PV Peak Gr.: 2.37 mmHg Tricuspid Valve RAP Estimate: 5.00 mmHg TR Peak Gr.: 19.36 mmHg RVSP: 24.36 mmHg PA Pressure: 24.36 mmHg Left Ventricle Left ventricle is mildly dilated. akinesis of the base of inferior wall, distal septum, and apex There is normal left ventricular wall thickness. Left ventricular ejection fraction is severly decreased. LVEF is 25-30%. Grade I - abnormal relaxation pattern. Right Ventricle The right ventricle is normal size. The right ventricular systolic function is normal. Pacemaker lead is present in the right ventricle. Atria The left atrium size is normal. Pacemaker lead is present in the right atrium. Aortic Valve The aortic valve is normal in structure. No aortic regurgitation is present. There is no aortic valvular stenosis. Mitral Valve The mitral valve is normal in structure. Mild mitral regurgitation. No evidence of mitral valve stenosis. Tricuspid Valve The tricuspid valve is normal in structure. Mild tricuspid regurgitation[place] [address] 2 D/M-MODE ECHOCARDIOGRAM Name: LAURA BUENROSTRO Room: [facility]#: [id number] Admission: 01/02/21 Attend Phys: Aldo Mai, Discharge: Date of : 62 Date of Service: 01/02/21 1039 Report #: [id number] The pulmonary valve is normal in structure. There is no pulmonic valvular regurgitation. Great Vessels The aortic root is normal in size. IVC is normal in size and collapses >50% with inspiration. Pericardium There is no pericardial effusion. <Conclusion> Left ventricle is mildly dilated. LVEF is 25-30%. akinesis of the base of inferior wall, distal septum, and apex Mild mitral regurgitation. <ELECTRONICALLY SIGNED> By: John Espinoza MD, [facility] 01/02/21 1039 1039 1039 John Espinoza MD, FAC /INF
== END ==
LOC: M.CRD 09:01
PROVIDERS: ATTEND Internal Medicine Cardiovascular Disease
DX: I08.1 Rheumatic disorders of both mitral and tricuspid valves (principal); I25.5 Ischemic cardiomyopathy; R55 Syncope and collapse

== ENCOUNTER → 2021-06-09 | Outpatient (CLI) | payer OTHER, MEDICAID ==
[2021-06-09 10:29] LABS: ABSOLUTE BASOPHILS 0.1 thou/uL (0.0-0.2); ABSOLUTE EOSINOPHILS 0.1 thou/uL (0.0-0.7); ABSOLUTE LYMPHOCYTES 1.5 thou/uL (0.8-5.3); ABSOLUTE MONOCYTES 0.5 thou/uL (0.0-1.2); ABSOLUTE NEUTROPHILS 3.9 thou/uL (1.6-8.1); BASOPHILS 1.2 %; EOSINOPHILS 2.4 %; HEMATOCRIT 46.3 % (42.0-52.0); HEMOGLOBIN 15.8 gm/dL (14.0-18.0); LYMPHOCYTES 24.2 %; MCHC 34.1 g/dL (28.0-37.0); MCV 93.7 fL (80.0-100.0); MONOCYTES 8.9 %; MPV 9.1 fl. (7.2-11.1); NUCLEATED RBCS 0 /100WBC; PLATELET COUNT* 123 thou/uL (150-400); POLYS 63.3 %; RBC 4.94 mil/uL (4.50-6.00); RDW-CV 13.6 % (10.5-14.5); WBC 6.2 thou/uL (4.0-11.0)
[2021-06-09 10:42] LABS: ANION GAP 9 mmol/L (7-16); BUN 10 mg/dL (7-18); CALCIUM 9.1 mg/dL (8.5-10.1); CHLORIDE 105 mmol/L (98-107); CHOLESTEROL 155 mg/dL (<200); CO2 26 mmol/L (21-32); CREATININE 1.1 mg/dL (0.6-1.3); GLUCOSE 107 mg/dL (70-99); HDL CHOLESTEROL 29 mg/dL (>40); LDL CHOLESTEROL 105 mg/dL (<100); POTASSIUM 4.1 mmol/L (3.5-5.1); SODIUM 140 mmol/L (136-145); TC:HDL 5.3 Ratio (Not establshd); TRIGLYCERIDE 105 mg/dL (<150); VLDL 21 mg/dL (<40)
[2021-06-09 10:43] LABS: SERUM ASSESSMENT Clear
== END ==
LOC: M.LAB 09:59
PROVIDERS: ATTEND Internal Medicine Cardiovascular Disease
DX: I25.5 Ischemic cardiomyopathy (principal); E78.00 Pure hypercholesterolemia, unspecified